=== PATIENT | male | born 1965 | race Caucasian/White ===

== ENCOUNTER 2018-01-07 07:17 | Day surgery (SDC) | payer OTHER, SELFPAY ==
--- NOTE | 2018-01-07 | PATH_ITS ---
[facility] Accession Number: [id number] . 01 Material submitted: . SIGMOID COLON POLYP . 02 Diagnosis: Sigmoid Colon, Polyp, Biopsy: Polypoid-shaped fragment of normal-appearing colon mucosa consistent with mucosal polypoid redundancy. Negative for evidence of neoplasm and/or hyperplasia on multiple serial histologic sections. MRV/01/12/2018 . 02 Electronically signed: . Otis Child MD, Pathologist NPI- [id number] . 01 Gross description: . SIGMOID COLON POLYP: Received in formalin is 1 fragment(s) of rush, soft tissue measuring 0.3 x 0.3 x 0.3 cm submitted entirely in 1 cassette(s) /TRC /TRC . 02 Pathologist provided ICD-10: K63.5 . 02 CPT . 778542 Performed at: 01 [facility] [address] [id number] MD Gerry Barraza MD Phone: [phone] Performed at: 02 [facility] [address] [place], [place] [id number] MD Yonny Larson MD Phone: [phone]
[2018-01-07 07:42] VITALS: BP 112/76; PULSE 62; RESP 18; TEMP 36.4; O2SAT 100; BMI 35.9
--- NOTE | 2018-01-07 08:05 | PM.HP.1 ---
History of Present Illness Chief complaint: egd colonoscopy [id number] Narrative: Perico Freeman is a 52 year old male who is here for colon cancer screening. He has a history of atrial fibrillation currently on Eliquis which has been held for 3 days. There are no new changes in his physical exam or history since he was last seen at our office October 30, 2017 There is no family history of colon cancer Patient History Family & Social History Family History: Reviewed 01/07/18 by Harley Weiner MD Social History: household members spouse Prior Living Arrangements House Meds Home Medications Medication Instructions Recorded Confirmed Type apixaban [Eliquis] 5 mg PO BID #0 05/03/17 01/07/18 History atorvastatin [Lipitor] 40 mg PO HS #90 06/13/17 01/07/18 History dofetilide [Tikosyn] 500 mcg PO Q12H 01/07/18 01/07/18 History duloxetine 20 mg PO BID 01/07/18 01/07/18 History hydrocodone-acetaminophen [[place]] 1 tab PO TID PRN 01/07/18 01/07/18 History metoprolol tartrate 25 mg PO BID 01/07/18 01/07/18 History Allergies Allergy/AdvReac Type Severity Reaction Status Date / Time No Known Drug Allergies Allergy Verified 01/07/18 07:30 Exam Vital Signs (past 8 hours): Vital Signs - 8 hr 01/07/18 07:42 Temperature 97.5 F L Pulse Rate 62 Respiratory Rate 18 Blood Pressure 112/76 Pulse Oximetry 100 Pulse Oximetry 100 Oxygen Delivery Method Room Air Narrative Exam Narrative: General: Patient is well developed, not in apparent distress Cardiovascular: Irregularly irregular rhythm, normal rate, no murmurs, rubs, or gallops; no evidence of edema; no palpable abdominal aortic aneurysm Gastrointestinal: Normoactive bowel sounds, soft, nontender, nondistended, no rebound tenderness, no hepatosplenomegaly, no evidence of hernia Assessment & Plan Plan: Plan: Screening colonoscopy today in an average risk patient. Anticoagulants have been held for the procedure
--- NOTE | 2018-01-07 08:08 | P.HP_ITS ---
History of Present Illness Chief complaint: egd colonoscopy [id number] Narrative: Perico Freeman is a 52 year old male who is here for colon cancer screening. He has a history of atrial fibrillation currently on Eliquis which has been held for 3 days. There are no new changes in his physical exam or history since he was last seen at our office October 30, 2017 There is no family history of colon cancer Patient History Family & Social History Family History: Reviewed 01/07/18 by Harley Weiner MD Social History: household members spouse Prior Living Arrangements House Meds Home Medications Medication Instructions Recorded Confirmed Type apixaban [Eliquis] 5 mg PO BID #0 05/03/17 01/07/18 History atorvastatin [Lipitor] 40 mg PO HS #90 06/13/17 01/07/18 History dofetilide [Tikosyn] 500 mcg PO Q12H 01/07/18 01/07/18 History duloxetine 20 mg PO BID 01/07/18 01/07/18 History hydrocodone-acetaminophen [[place]] 1 tab PO TID PRN 01/07/18 01/07/18 History metoprolol tartrate 25 mg PO BID 01/07/18 01/07/18 History Allergies Allergy/AdvReac Type Severity Reaction Status Date / Time No Known Drug Allergies Allergy Verified 01/07/18 07:30 Exam Vital Signs (past 8 hours): Vital Signs - 8 hr 3 01/07/18 07:42 Temperature 97.5 F L Pulse Rate 62 Respiratory Rate 18 Blood Pressure 112/76 Pulse Oximetry 100 Pulse Oximetry 100 Oxygen Delivery Method Room Air Narrative Exam Narrative: General: Patient is well developed, not in apparent distress Cardiovascular: Irregularly irregular rhythm, normal rate, no murmurs, rubs, or gallops; no evidence of edema; no palpable abdominal aortic aneurysm Gastrointestinal: Normoactive bowel sounds, soft, nontender, nondistended, no rebound tenderness, no hepatosplenomegaly, no evidence of hernia Assessment & Plan Plan: Plan: Screening colonoscopy today in an average risk patient. Anticoagulants have been held for the procedure
[2018-01-07] MEDS: SODIUM CHLORIDE 0.9% 1,000 ML 70 ML IV (08:26)
--- NOTE | 2018-01-07 08:30 | PM.OP.ENDO ---
Operative Date/Time/Diagnoses - Date of procedure: 01/07/18 Time of procedure: 08:30 Pre-op diagnosis: Colon cancer screening Post-op diagnosis: other (Sigmoid polyp status post polypectomy, grade 2 internal hemorrhoids) Procedure Notes Procedure in detail: Surgeon: Harley Weiner MD Procedure: Colonoscopy with polypectomy Medications: Conscious sedation using 5 mg IV of Midazolam and 100 mcg IV of Fentanyl Preanesthesia Assessment An H and P was performed/updated and the Px???s ASA class is 2. The procedure was discussed in detail with the patient. The potential risks and complications including infection, bleeding, missed lesions, perforation, need for surgery in case of perforation, prolonged hospital stay, and were explained. A brief question and answer period was allotted and once all questions were answered, informed consent was obtained. The patient was brought back to the procedure room and placed on standard monitoring. The patient???s vital signs were monitored continuously throughout the entire procedure. Prior to starting, a timeout was performed to confirm the patient???s identity, allergies, medications, and procedure. Procedure in detail The patient was placed in left lateral decubitus position and once adequate sedation was obtained a YA was performed. The tip of the colonoscope was then placed in the anal canal and advanced without difficulty all the way to the cecum which was identified by the appendiceal orifice and ileocecal valve. The terminal ileum was intubated to a distance of 5 cm from the ileocecal valve and there were no mucosal abnormalities. The colonoscope was brought back to the cecum and careful examination was performed of all norman of the colon with irrigation of any residual stool. In the sigmoid colon there was note of a 2 mm sessile polyp which was removed in its entirety by means of a cold Jumbo forceps with minimal bleeding. Retroflexion was then performed in the rectum which revealed grade 2 internal hemorrhoids. The procedure was terminated. The patient tolerated the procedure well and will be brought back to the recovery area to be discharged once criteria are met. The prep was judged to be good/excellent and adequate to identify polyps less than 5 mm. The withdrawal time was 8.5 min. The total procedure time from initial sedation was 17 min. Complications There were no complications and estimated blood loss was minimal. Recommendations: Resume previous diet Continue outPx medications Restart Eliquis today Follow up pathology results Repeat colonoscopy in 5 years or 10 years depending on pathology results An emergency contact number was given to the patient for any complications related to the procedure
[2018-01-07] MEDS: fentaNYL 250 MCG/5 ML INJ IV (08:41)
[2018-01-07] MEDS: MIDAZOLAM 5 MG/5 ML VIAL IV (08:41)
[2018-01-07 08:54] VITALS: BP 103/70; PULSE 62; RESP 14; TEMP 36.5; O2SAT 97
--- NOTE | 2018-01-07 08:54 | P.DS_ITS ---
History of Present Illness Chief complaint: egd colonoscopy [id number] Narrative: Perico Freeman is a 52 year old male who is here for colon cancer screening. He has a history of atrial fibrillation currently on Eliquis which has been held for 3 days. There are no new changes in his physical exam or history since he was last seen at our office October 30, 2017 There is no family history of colon cancer Discharge Providers Discharge provider: Harlye Weiner MD Exam Vital Signs (past 8 hours): Vital Signs - 8 hr 3 01/07/18 07:42 Temperature 97.5 F L Pulse Rate 62 Respiratory Rate 18 Blood Pressure 112/76 Pulse Oximetry 100 Pulse Oximetry 100 Oxygen Delivery Method Room Air Narrative Exam Narrative: General: Patient is well developed, not in apparent distress Cardiovascular: Irregularly irregular rhythm, normal rate, no murmurs, rubs, or gallops; no evidence of edema; no palpable abdominal aortic aneurysm Gastrointestinal: Normoactive bowel sounds, soft, nontender, nondistended, no rebound tenderness, no hepatosplenomegaly, no evidence of hernia Discharge Plan Discharge Plan Patient Disposition: Home, Self-Care Discharge comment: Discharge to home with escort Discharge Med Rec/Prescriptions Prescriptions: Continue apixaban [Eliquis] 5 MG tablet 5 mg PO BID Qty: 0 RF: 0 atorvastatin [Lipitor] 40 MG tablet 40 mg PO HS Qty: 90 RF: 0 dofetilide [Tikosyn] 500 mcg Capsule 500 mcg PO Q12H RF: 0 metoprolol tartrate 25 mg Tablet 25 mg PO BID RF: 0 duloxetine 20 mg Capsule,Delayed Release(Dr/Ec) 20 mg PO BID RF: 0 hydrocodone-acetaminophen [[place]] 7.5 MG/325 MG tablet 1 tab PO TID PRN (Reason: Pain (Scale Score 1-3)) RF: 0 Discharge Orders: Discharge (Order); Ordered 01/07/18 Ordered By: Harley Weiner Provider Discharge Instructions Diet: Diet as Tolerated Visit Report/Discharge Packet Stand Alone Forms: Surgery Discharge Discharge Data Attending Provider: Harley Weiner
[2018-01-07 08:59] VITALS: BP 105/73; PULSE 61; RESP 14; O2SAT 98
[2018-01-07 09:05] VITALS: BP 108/75; PULSE 61; RESP 14; TEMP 36.4; O2SAT 99
[2018-01-07 09:15] VITALS: BP 105/72; PULSE 61; RESP 16; TEMP 36.2; O2SAT 100
== END 2018-01-07 09:35 | disposition home or self-care (01) ==
PROVIDERS: Visit Provider Internal Medicine Gastroenterology
PROC: 0DJD8ZZ Inspection of Lower Intestinal Tract, Via Natural or Artificial Opening Endoscopic (ICD-10-PCS; CPT 45378; principal; 2018-01-07 08:30)
DX: Z12.11 Encounter for screening for malignant neoplasm of colon (principal); K64.1 Second degree hemorrhoids; D12.5 Benign neoplasm of sigmoid colon; I48.91 Unspecified atrial fibrillation
CPT/HCPCS: 45380; 88305; J2250; J3010

== ENCOUNTER → 2018-04-01 19:39 | Outpatient (CLI) | payer OTHER, SELFPAY ==
--- NOTE | 2018-04-01 19:45 | DI.MRI.S_ITS ---
PROCEDURE: MR ELBOW RT WO CON INDICATIONS: PAIN IN RIGHT ARM TECHNIQUE: Noncontrast coronal proton density fast spin echo and T2 fast spin echo with fat saturation, axial and sagittal T1 spin echo and T2 fast spin echo with fat saturation through the elbow. COMPARISON: None. FINDINGS: Image quality: Excellent. Lateral structures: The lateral ulnar collateral ligament and radial collateral ligament both appear intact. The overlying common extensor tendon also appears normal. Medial structures: The ulnar collateral ligament appears intact. The overlying common flexor tendon appears normal. The ulnar nerve appears normal in size and signal within the cubital tunnel. Anterior structures: Fluid is seen surrounding distal biceps tendon with thickening the distal biceps tendon and internal heterogeneous increased T2 signal suggestive of tendinosis and low to moderate grade intrasubstance partial-thickness tear involving distal 5 cm segment of biceps tendon. No full-thickness biceps tendon rupture. The brachialis tendon appears intact as it inserts onto the proximal ulna. The median and radial neurovascular bundles appear normal; no focal muscle atrophy to suggest nerve impingement. Posterior structures: The conjoint triceps tendon from the long and lateral heads appears intact. The medial head of the triceps tendon also appears normal, with direct muscle insertion onto the olecranon. No olecranon bursal fluid. Bone and cartilage: No bone marrow contusions or fractures. No osteochondral injuries. IMPRESSION: Findings consistent with tendinosis and low to moderate grade intrasubstance partial-thickness tear involving distal 5 cm segment of biceps tendon from its insertion on proximal radius. No full-thickness bicipital tendon tear. Other tendons and ligaments are intact. No marrow signal abnormality. No fracture or dislocation. Dictated by: Daniel Monterroso M.D. on 04/02/2018 at 10:07 Approved by: Daniel Monterroso M.D. on 04/02/2018 at 10:28
== END ==
PROVIDERS: Visit Provider Family Medicine
DX: M79.601 Pain in right arm (principal); S46.211A Strain of muscle, fascia and tendon of other parts of biceps, right arm, initial encounter
CPT/HCPCS: 73221

== ENCOUNTER → 2019-04-07 19:55 | Outpatient (CLI) | payer OTHER, SELFPAY ==
--- NOTE | 2019-04-07 20:02 | DI.RAD.S_ITS ---
PROCEDURE: XR FOOT LT MIN 3V INDICATIONS: Pain to mid-distal 3-5th metatarsals, limping gait TECHNIQUE: 3 views of the foot were acquired. COMPARISON: None. FINDINGS: Bones: No fractures or dislocations. No suspicious bony lesions. Soft tissues: No tibiotalar joint effusion. Achilles tendon appears normal. IMPRESSION: No acute fracture or dislocation. Dictated by: Daniel Monterroso M.D. on 04/07/2019 at 20:20 Approved by: Daniel Monterroso M.D. on 04/07/2019 at 20:27
== END ==
PROVIDERS: Visit Provider Physician Assistant
DX: R26.89 Other abnormalities of gait and mobility (principal)
CPT/HCPCS: 73630

== ENCOUNTER → 2021-05-31 19:11 | Outpatient (CLI) | payer OTHER, SELFPAY ==
--- NOTE | 2021-05-31 | DI.MRI.S_ITS ---
PROCEDURE: MR ANKLE LT WO CON INDICATIONS: chronic lateral left ankle pain TECHNIQUE: Noncontrast sagittal T1 spin echo and T2 fast spin echo with fat saturation, axial proton density fast spin echo and T2 fast spin echo with fat saturation, coronal T1 spin echo and T2 fast spin echo with fat saturation through the ankle/hindfoot. COMPARISON: [facility], MR, ANKLE WITHOUT CONTRAST, 01/12/2015, 16:03. FINDINGS: Image quality: Excellent. Bones and joints: No hindfoot coalitions. No osteochondral injuries of the talar dome. Degenerative changes are seen at the navicular-1st cuneiform articulation and the 2nd tarsometatarsal joint with subchondral cystic changes and edema, similar when compared to the prior exam from 2014. Mild degenerative spurring is seen at the dorsal talonavicular joint. Mild edema is seen at the plantar aspect of the 4th metatarsal base with mild adjacent soft tissue edema. Mild chronic irregularity of the distal fibular tip is consistent with remote prior trauma. A small lobular ganglion cyst is seen dorsal to the 3rd and 4th metatarsal bases measuring 12 x 8 x 7 mm. Medial structures: The deep and superficial layers of the deltoid ligament appear intact. The spring ligament components are intact. There is mild distal posterior tibialis tendinosis. The flexor digitorum longus and flexor hallucis longus tendons are intact. The posterior tibial neurovascular bundle appears normal within the tarsal tunnel, without extrinsic mass effect. Lateral structures: Chronic low-grade sprain of the anterior tibiofibular ligament is redemonstrated. The posterior tibiofibular ligament is intact. There is chronic thickening of the anterior talofibular ligament, consistent with a remote prior moderate grade sprain. The calcaneofibular ligament and the posterior talofibular ligament are intact. Chronic longitudinal split tearing of the peroneus brevis tendon is redemonstrated with reconstitution of the tendon at the level of the calcaneocuboid joint. There is mild peroneus longus tendinosis and tenosynovitis. The sinus tarsi demonstrates normal fatty signal, without edema, fibrosis, or cyst formation. Anterior structures: The tibialis anterior, extensor hallucis longus, and extensor digitorum longus tendons appear intact. The dorsal talonavicular ligament appears intact. Posterior and plantar structures: Achilles tendon is intact. There is mild thickening of the proximal plantar fascia without surrounding edema. No abductor digiti quinti muscle atrophy to suggest [place] neuropathy. Small nonedematous plantar and posterior calcaneal enthesophytes are seen. IMPRESSION: 1. Mild nonspecific osseous edema at the plantar aspect of the 4th metatarsal base with mild surrounding edema is new when compared to the prior MRI, which may be related to degenerative changes although mild trabecular bone injury related to an osseous contusion could appear similarly. 2. Moderate degenerative changes at the naviculocuneiform and 2nd tarsometatarsal joints. 3. Chronic moderate grade sprain of the anterior talofibular ligament and a chronic low-grade sprain of the anterior tibiofibular ligament do not appear significantly changed when compared to the prior MRI from 01/12/2015. 4. 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 5. Mild peroneus longus tendinosis and tenosynovitis. 6. Mild chronic proximal plantar fasciitis. Dictated by: Zhen Yeh M.D. on 06/01/2021 at 9:10 Approved by: Zhen Yeh M.D. on 06/01/2021 at 9:43
== END ==
PROVIDERS: Referring Provider Podiatrist; Visit Provider Podiatrist
DX: M25.572 Pain in left ankle and joints of left foot (principal); R60.0 Localized edema; S93.432A Sprain of tibiofibular ligament of left ankle, initial encounter; S93.492A Sprain of other ligament of left ankle, initial encounter; S96.812A Strain of other specified muscles and tendons at ankle and foot level, left foot, initial encounter; M65.872 Other synovitis and tenosynovitis, left ankle and foot; M72.2 Plantar fascial fibromatosis
CPT/HCPCS: 73721

== ENCOUNTER → 2022-03-27 12:02 | Outpatient (CLI) | payer OTHER, SELFPAY ==
[2022-03-27 13:28] LABS: Blood Urea Nitrogen 18 mg/dL (9-20); Calcium 9.2 mg/dL (8.4-10.2); Carbon Dioxide 29 mmol/L (22-32); Chloride 107 mmol/L (98-107); Estimated Glomerular Filt Rate > 60 mL/min (>60); Glucose 99 mg/dL (70-100); HEMOLYSIS < 15 (0-50); Sodium 141 mmol/L (137-145)
== END ==
PROVIDERS: Referring Provider Internal Medicine Cardiovascular Disease; Visit Provider Internal Medicine Cardiovascular Disease
DX: Z51.81 Encounter for therapeutic drug level monitoring (principal)
CPT/HCPCS: 36415; 80048

== ENCOUNTER → 2022-07-12 18:31 | Outpatient (CLI) | payer OTHER, SELFPAY ==
--- NOTE | 2022-07-12 18:33 | DI.MRI.S_ITS ---
PROCEDURE: MR ANKLE RT WO/W CON INDICATIONS: pain in right ankle joints TECHNIQUE: Noncontrast sagittal T1 spin echo and T2 fast spin echo with fat saturation, axial proton density fast spin echo and T2 fast spin echo with fat saturation, axial T1 spin echo with fat saturation, coronal T1 spin echo and T2 fast spin echo with fat saturation through the ankle/hindfoot. Post-contrast axial, coronal, and sagittal T1 spin echo with fat saturation through the ankle/hindfoot. COMPARISON: None. FINDINGS: Image quality: Excellent. Bones and joints: No suspicious osseous enhancement. Mild midfoot and hindfoot joint osteoarthritic changes are noted with joint space narrowing and subchondral sclerosis. No bone marrow contusions or fractures. No hindfoot coalitions. No osteochondral injuries of the talar dome. No pathologic joint effusions. Small plantar and dorsal calcaneal enthesophytes are seen. Medial structures: The posterior tibialis, flexor digitorum longus, and flexor hallucis longus tendons are intact. The posterior tibial neurovascular bundle appears normal within the tarsal tunnel, without extrinsic mass effect. The deltoid ligament and spring ligament are thickened. No ligament rupture. Lateral structures: The anterior talofibular, calcaneofibular, and posterior talofibular ligaments appear thickened with intrasubstance T2 hyperintense signal.. More superiorly, the anterior and posterior tibiofibular ligaments appear intact, as is the intermalleolar ligament. The tibiofibular syndesmosis is normal in width at 2 mm or less. The peroneus longus tendon is thickened at the level of mid to distal calcaneus and calcaneocuboid joint with intrasubstance T2 hyperintense signal. The peroneus brevis tendon is intact. Adjacent bony peroneal tubercle and retrotrochlear prominence are normal in size. The sinus tarsi demonstrates normal fatty signal, without edema, fibrosis, or cyst formation. Visualized sinus tarsi components (cervical ligament, interosseous talocalcaneal ligament, roots of the inferior extensor retinaculum) appear normal. The calcaneonavicular and calcaneocuboid components of the bifurcate ligament appear intact. The dorsal calcaneocuboid ligament appears intact. Anterior structures: The tibialis anterior, extensor hallucis longus, and extensor digitorum longus tendons appear intact. The dorsal talonavicular ligament appears intact. Posterior and plantar structures: There is thickening involving distal 6.8 cm segment of Achilles tendon extending to its posterior calcaneal insertion with surrounding soft tissue edema and mild intrasubstance T2 hyperintense signal. Medial and lateral bands of the plantar fascia are thickened with mild adjacent soft tissue edema at its plantar calcaneal insertion. No abductor digiti quinti muscle atrophy to suggest [place] neuropathy. IMPRESSION: 1. No enhancing soft tissue mass or abnormal fluid collection. 2. No abnormal intraosseous enhancement. Mild midfoot and hindfoot joint osteoarthritis. No fracture or dislocation. No osteochondral injuries of talar dome. Small calcaneal enthesophytes. 3. Distal Achilles tendinosis and low-grade intrasubstance partial-thickness tear. No Achilles tendon rupture. Thickened plantar fascia suggestive of low-grade plantar fasciitis. 4. Mild medial ankle ligament sprain. 5. Low to moderate grade sprain/partial-thickness tear involving anterior and posterior talofibular ligaments and calcaneofibular ligament. 6. Finding is suggestive of tendinosis and very low-grade intrasubstance partial-thickness tear involving peroneus longus tendon as above. Dictated by: Daniel Monterroso M.D. on 07/15/2022 at 9:48 Approved by: Daniel Monterroso M.D. on 07/15/2022 at 9:53
== END ==
PROVIDERS: Referring Provider Family Medicine; Visit Provider Family Medicine
DX: S86.011A Strain of right Achilles tendon, initial encounter (principal); S93.491A Sprain of other ligament of right ankle, initial encounter; S93.411A Sprain of calcaneofibular ligament of right ankle, initial encounter; M19.071 Primary osteoarthritis, right ankle and foot; M77.31 Calcaneal spur, right foot; M25.571 Pain in right ankle and joints of right foot; M79.673 Pain in unspecified foot; M67.969 Unspecified disorder of synovium and tendon, unspecified lower leg
CPT/HCPCS: 73723; A9579

== ENCOUNTER → 2022-08-07 12:53 | Outpatient (CLI) | payer OTHER, SELFPAY ==
[2022-08-07 14:03] LABS: BUN Creatinine Ratio 29.8 (6-22); Blood Urea Nitrogen 25 mg/dL (9-20); Calcium 9.2 mg/dL (8.4-10.2); Carbon Dioxide 25 mmol/L (22-32); Chloride 105 mmol/L (98-107); Estimated Glomerular Filt Rate > 60 mL/min (>60); Glucose 91 mg/dL (70-100); HEMOLYSIS < 15 (0-50); Potassium 4.5 mmol/L (3.4-5.1); Sodium 140 mmol/L (137-145)
== END ==
PROVIDERS: Referring Provider Internal Medicine Cardiovascular Disease; Visit Provider Internal Medicine Cardiovascular Disease
DX: Z51.81 Encounter for therapeutic drug level monitoring (principal); Z79.899 Other long term (current) drug therapy
CPT/HCPCS: 36415; 80048

== ENCOUNTER 2022-09-17 10:03 | Observation (INO) | payer OTHER, SELFPAY ==
[2022-09-17] VITALS (8 sets, daily range): BP systolic 119–151; BP diastolic 66–84; PULSE 75–107; RESP 12–23; TEMP 36.7–37.2; O2SAT 93–100; BMI 35.9
--- NOTE | 2022-09-17 10:20 | ED.ABDPAIN ---
HPI - Abdominal Pain General Chief Complaint: Abdominal Pain Stated Complaint: rt side abd pain, fever Time Seen by Provider: 09/17/22 10:12 Source: patient Mode of arrival: Ambulatory History of Present Illness HPI narrative: 56-year-old male presenting with abdominal pain localized to the right lower quadrant. Patient felt chills last night, developed worsening right lower quadrant abdominal pain that has been constant and moderate severity today. Patient's last p.o. intake was last night, patient only took his morning pills. Past medical history notable for history of atrial fibrillation on metoprolol, Tikosyn, and Eliquis for anticoagulation. Related Data Home Medications Medication Instructions Recorded Confirmed apixaban 5 mg tablet (Eliquis) 5 mg PO BID ##0 05/03/17 09/17/22 atorvastatin 40 mg tablet (Lipitor) 40 mg PO HS ##90 06/13/17 09/17/22 dofetilide 500 mcg capsule 500 mcg PO BID 01/07/18 09/17/22 (Tikosyn) duloxetine 20 mg capsule,delayed 40 mg PO BID 01/07/18 09/17/22 release hydrocodone 7.5 mg-acetaminophen 1 tab PO TID PRN Pain (Scale Score 01/07/18 09/17/22 325 mg tablet (Moon) 1-3) metoprolol tartrate 25 mg tablet 25 mg PO BID 01/07/18 09/17/22 magnesium 200 mg tablet 400 mg PO DAILY 09/17/22 09/17/22 [id number] 200 1 pkg PO QAM 09/17/22 09/17/22 mcg/240 mg-360 mg oral combo pack Allergies Allergy/AdvReac Type Severity Reaction Status Date / Time No Known Drug Allergies Allergy Verified 09/17/22 10:10 Patient History Social History household members: spouse and family Smoking Status: Never smoker alcohol intake: never Smoking Status: Unknown if ever smoked alcohol intake frequency: holidays/special occasions only Substance Use Type: does not use Exam Narrative Exam Narrative: Vitals reviewed. Nursing note reviewed Constitutional: interactive HENT: Moist mucous membranes EYES: No scleral icterus NECK: no masses CV: Well perfused peripherally, no cyanosis present PULM: Unlabored respirations, symmetric chest rise ABD: Non-distended, tender over the RLQ MS: No gross deformities, no asymmetric edema noted SKIN: Warm and dry. PSYCH: Appropriate affect NEURO: Follows simple commands, moves extremities, interactive with exam Initial Vital Signs Initial Vital Signs: Vital Signs Temperature 98.1 F 09/17/22 10:07 Pulse Rate 75 09/17/22 10:07 Respiratory Rate 15 09/17/22 10:07 Blood Pressure 133/82 09/17/22 10:07 Pulse Oximetry 98 09/17/22 10:07 Oxygen Delivery Method 09/17/22 10:07 Course Orders Ordered: Acetaminophen (Acetaminophen 325 Mg Tablet) 650 mg PO Q6H PRN PRN Reason: Fever/Mild Pain (1-3) Hydrocodone Bitart/Acetaminophen (Hydrocodone/Acet 5/325 Tablet) 1 tab PO Q4H PRN PRN Reason: Pain, Moderate (4-6) Hydrocodone Bitart/Acetaminophen (Hydrocodone/Acet 5/325 Tablet) 2 tab PO Q4H PRN PRN Reason: Pain, Severe (7-10) Last Admin: 09/17/22 17:03 Dose: 2 tab Documented By: TIFFANY Hydromorphone HCl (Hydromorphone 0.5 Mg Inj) 0.5 mg IV Q4H PRN PRN Reason: Pain, Moderate (4-6) Hydromorphone HCl (Hydromorphone 1 Mg Inj) 1 mg IV Q4H PRN PRN Reason: Pain, Severe (7-10) Last Admin: 09/17/22 19:40 Dose: 1 mg Documented By: ANGEL Lactated Ringer's (Lactated Ringers) 1,000 mls @ 100 mls/hr IV CONT [facility] Last Admin: 09/17/22 14:17 Dose: 100 mls/hr Documented By: TIFFANY Piperacillin Sod/Tazobactam (Sod 4.5 gm/ Sodium Chloride) 100 mls @ 25 mls/hr IV NOW [facility] Last Infusion: 09/17/22 19:28 Dose: 25 mls/hr Documented By: Infusion: 09/17/22 19:28 Dose: 0 mls/hr Documented By: Admin: 09/17/22 17:10 Dose: 25 mls/hr Documented By: TIFFANY Piperacillin Sod/Tazobactam (Sod 3.375 gm/ Sodium Chloride) 100 mls @ 25 mls/hr IV Q8H [facility] Last Admin: 09/17/22 17:26 Dose: Not Given Documented By: TIFFANY Ibuprofen (Ibuprofen 600 Mg Tablet) 600 mg PO Q6H PRN PRN Reason: Fever/Mild Pain (1-3) Naloxone HCl (Naloxone 0.4 Mg/Ml Vial) 0.2 mg IV Q2MIN PRN PRN Reason: Opiate Reversal Ondansetron HCl (Ondansetron 4 Mg/2 Ml Inj) 4 mg IV Q8HR PRN PRN Reason: Nausea And Vomiting Discontinued Medications Hydromorphone HCl (Hydromorphone 0.5 Mg Inj) 1 mg IV NOW ONE Stop: 09/17/22 13:11 Last Admin: 09/17/22 13:14 Dose: 1 mg Documented By: TIFFANY Metronidazole (Flagyl) 500 mg in 100 mls @ 100 mls/hr IV NOW ONE Stop: 09/17/22 11:19 Last Infusion: 09/17/22 19:27 Dose: 0 mls/hr Documented By: Admin: 09/17/22 11:15 Dose: 100 mls/hr Documented By: MADI Ceftriaxone Sodium 2,000 mg/ (Sodium Chloride) 100 mls @ 200 mls/hr IV NOW ONE Stop: 09/17/22 10:23 Last Infusion: 09/17/22 11:30 Dose: 0 mls/hr Documented By: Admin: 09/17/22 10:31 Dose: 200 mls/hr Documented By: MADI Sodium Chloride (Normal Saline 0.9%) 500 mls @ 2,000 mls/hr IV BOLUS ONE Stop: 09/17/22 11:24 Last Admin: 09/17/22 11:21 Dose: Not Given Documented By: MADI Sodium Chloride (Normal Saline 0.9%) 1,000 mls @ 2,000 mls/hr IV BOLUS ONE Stop: 09/17/22 11:49 Last Infusion: 09/17/22 19:27 Dose: 0 mls/hr Documented By: Admin: 09/17/22 11:23 Dose: 2,000 mls/hr Documented By: MADI Morphine Sulfate (Morphine 4 Mg/Ml Inj) 4 mg IV NOW ONE Stop: 09/17/22 10:21 Last Admin: 09/17/22 10:26 Dose: 4 mg Documented By: MADI Vital Signs Vital signs: Vital Signs - 8 hr 09/17/22 10:07 09/17/22 10:09 09/17/22 10:09 Temperature 98.1 F Pulse Rate 75 78 Respiratory Rate 15 Blood Pressure 133/82 133/82 Pulse Oximetry 98 99 Oxygen Delivery Method Room Air 09/17/22 10:30 09/17/22 10:30 09/17/22 10:52 Temperature Pulse Rate 76 Respiratory Rate 12 Blood Pressure 135/75 138/81 Pulse Oximetry 100 Oxygen Delivery Method 09/17/22 10:52 09/17/22 11:00 09/17/22 11:00 Temperature Pulse Rate 85 76 Respiratory Rate 20 Blood Pressure 137/84 Pulse Oximetry 97 99 Oxygen Delivery Method 09/17/22 11:30 09/17/22 11:30 Temperature Pulse Rate 77 Respiratory Rate 22 Blood Pressure 136/80 Pulse Oximetry 99 Oxygen Delivery Method MDM - Abdominal Pain Lab Data 09/17/22 10:11 09/17/22 10:11 Labs: Lab Results 09/17/22 09/17/22 09/17/22 Range/Units 10:11 10:11 11:19 WBC 12.6 H (4.5-11.0) X10^3/uL RBC 4.63 (4.5-5.9) X10^6/uL Hgb 13.9 (13.5-17.5) g/dL Hct 41.8 (41-53) % MCV 90.4 (80-100) fL MCH 30.0 (26-34) PG MCHC 33.1 (30-36) % RDW 13.2 (11.6-14.8) % Plt Count 243 (150-400) X10^3/uL Neut % (Auto) 78.7 H (50-75) % Lymph % (Auto) 11.4 L (25-40) % [place] % (Auto) 8.6 (3-14) % Eos % (Auto) 0.8 L (2-4) % Baso % (Auto) 0.5 (0-2) % Neut # (Auto) 9900 H (5054-6610) /uL Lymph # (Auto) 1400 (7495-2941) /uL [place] # (Auto) 1100 H (0-900) /uL Eos # (Auto) 100 (0-450) /uL Baso # (Auto) 100 (0-100) /uL Sodium 141 (137-145) mmol/L Potassium 4.9 (3.4-5.1) mmol/L Chloride 105 (98-107) mmol/L Carbon Dioxide 29 (22-32) mmol/L BUN 16 (9-20) mg/dL Creatinine 0.82 (0.66-1.25) mg/dL Estimated GFR > 60 (>60) mL/min BUN/Creatinine Ratio 19.5 (6-22) Glucose 104 H (70-100) mg/dL Calcium 9.1 (8.4-10.2) mg/dL Total Bilirubin 0.9 (0.2-1.3) mg/dL AST 33 (17-59) IU/L ALT 29 (<50) IU/L Alkaline Phosphatase 83 (38-126) U/L Total Protein 7.5 (6.3-8.2) g/dL Albumin 4.0 (3.5-5.0) g/dL Globulin 3.5 (1.7-4.1) g/dL Albumin/Globulin Ratio 1.1 (1.0-2.8) Lipase 682 H (23-300) U/L SARS-CoV-2 (PCR) Negative (Negative) MDM Narrative Medical decision making narrative: 56-year-old male presenting right lower quadrant abdominal pain and subjective fevers. On presentation, vital signs notable for hypertension. Physical exam for alert interactive 56-year-old male who is in no acute distress, reassuring cardiopulmonary exam, abdomen notable for focal right lower quadrant abdominal pain. Initial concern for acute intra-abdominal pathology including appendicitis, colitis, atypical diverticulitis, hernia, obstruction, biliary pathology. Screening labs obtained for mild leukocytosis 12,000, reassuring creatinine, elevated lipase of uncertain clinical significance given patient without focal epigastric tenderness. Patient was then administered empiric antibiotics and IV fluids with ceftriaxone and metronidazole out of concern for appendicitis. Imaging obtained with CT to further evaluate notable for acute uncomplicated appendicitis. Discussed case with general surgery team who agree with plan for admission to facilitate surgical management. Patient subsequently admitted ongoing care. Discharge Plan Departure Patient Disposition: Admitted as Observation Clinical Impression: Acute appendicitis Admit Date/Time: 09/17/22 11:33 Admit Provider: Jay Garcia
[2022-09-17 10:26] LABS: Add Manual Diff / Slide Review NO; Basophils Absolute Auto 100 /uL (0-100); Basophils Percent Auto 0.5 % (0-2); Eosinophils Absolute Auto 100 /uL (0-450); Eosinophils Percent Auto 0.8 % (2-4); Hematocrit 41.8 % (41-53); Hemoglobin 13.9 g/dL (13.5-17.5); Lymphocytes Absolute Auto 1400 /uL (1100-4500); Lymphocytes Percent Auto 11.4 % (25-40); Mean Corpuscular HGB Conc 33.1 % (30-36); Mean Corpuscular Volume 90.4 fL (80-100); Monocytes Absolute Auto 1100 /uL (0-900); Monocytes Percent Auto 8.6 % (3-14); Neutrophils Absolute Auto 9900 /uL (1500-7000); Neutrophils Percent Auto 78.7 % (50-75); Platelet Count 243 X10^3/uL (150-400); Red Blood Cell Count 4.63 X10^6/uL (4.5-5.9); Red Cell Distribution Width 13.2 % (11.6-14.8); White Blood Cell Count 12.6 X10^3/uL (4.5-11.0)
[2022-09-17] MEDS: MORPHINE 4 MG/ML INJ IV (10:26)
[2022-09-17] MEDS: cefTRIAXone 2,000 MG in SODIUM CHLORIDE 0.9% 100 ML 200 MG IV (10:31)
--- NOTE | 2022-09-17 10:44 | DI.CT.S_ITS ---
PROCEDURE: CT ABDOMEN PELVIS W CON INDICATIONS: Evaluate appendicitis TECHNIQUE: After the administration of intravenous contrast, axial sections acquired from the lung bases to the pubic symphysis. Coronal and sagittal reformats were performed. For radiation dose reduction, the following was used: automated exposure control, adjustment of mA and/or kV according to patient size. COMPARISON: None. FINDINGS: Image quality: Excellent. Lung bases: Lung bases are clear. Heart size is normal. Solid organs: Liver: The liver has multiple hypodensities in both lobes of the liver the largest measuring 1.5 cm, most likely hemangiomas. The portal vein and hepatic veins are patent. Biliary: The gallbladder has no gallstones, pericholecystic fluid, gallbladder wall thickening, or surrounding inflammatory change. Pancreas: The pancreas has no mass or ductal dilatation. There is no surrounding inflammation. Spleen: Normal size. There are no masses. Adrenals: No hypertrophy or nodules. Kidneys: No obstructive calculus or hydronephrosis. No solid mass. 1 cm cyst of the superior pole of the left kidney. Peritoneum and bowel: The distal esophagus and stomach are normal. The small bowel has a normal caliber and appearance. The terminal ileum is normal. The large bowel has a normal caliber and appearance. The the appendix is dilated measuring 1.3 cm with a 7 mm appendicoliths. There is surrounding inflammation with no evidence of perforation or abscess. No free fluid or air. Nodes and vessels: No retroperitoneal or mesenteric adenopathy by size criteria. Aorta and inferior vena cava are normal in size. Miscellaneous: No abdominal wall mass or hernia. PELVIS: Genitourinary: The bladder has no wall thickening or mass. No bladder calcifications. Bones: Degenerative changes with no focal abnormality. No vertebral body compression fractures. IMPRESSION: Acute appendicitis with an appendicolith. No evidence of perforation or abscess. Findings were discussed with in the ED at 11:05 on 09/17/2022. Dictated by: Aydin Aviles M.D. on 09/17/2022 at 10:58 Approved by: Aydin Aviles M.D. on 09/17/2022 at 11:08
[2022-09-17 11:13] LABS: Alanine Aminotransferase 29 IU/L (<50); Albumin Globulin Ratio 1.1 (1.0-2.8); Alkaline Phosphatase 83 U/L (38-126); Aspartate Aminotransferase 33 IU/L (17-59); BUN Creatinine Ratio 19.5 (6-22); Bilirubin Total 0.9 mg/dL (0.2-1.3); Blood Urea Nitrogen 16 mg/dL (9-20); Calcium 9.1 mg/dL (8.4-10.2); Carbon Dioxide 29 mmol/L (22-32); Chloride 105 mmol/L (98-107); Estimated Glomerular Filt Rate > 60 mL/min (>60); Globulin 3.5 g/dL (1.7-4.1); Glucose 104 mg/dL (70-100); HEMOLYSIS < 15 (0-50); Lipase 682 U/L (23-300); Potassium 4.9 mmol/L (3.4-5.1); Sodium 141 mmol/L (137-145); Total Protein 7.5 g/dL (6.3-8.2)
[2022-09-17] MEDS: metroNIDAZOLE 500 MG/100 ML PIGGYBACK 100 MG IV (11:15)
[2022-09-17] MEDS: SODIUM CHLORIDE 0.9% 1,000 ML 2000 ML IV (11:23)
[2022-09-17 11:39] LABS: COVID19 -Nasal RAPID Negative (Negative)
[2022-09-17] MEDS: HYDROMORPHONE 0.5 MG INJ 1 MG IV (13:14)
--- NOTE | 2022-09-17 13:34 | PM.HP.1 ---
History of Present Illness History of Present Illness Date Patient Seen: 09/17/22 Time Patient Seen: 13:34 Chief complaint: rt side abd pain, fever Narrative: Perico is a 56-year-old man who presents with several days of malaise and right lower quadrant pain. Came in his ER where a CT showed acute appendicitis. He takes Eliquis for atrial fibrillation and his last dose was this morning. Patient History Family & Social History Social History: household members spouse,family Prior Living Arrangements House Safety & Behavioral: Feels Safe in Current Yes Environment Been Physically Hurt or No Threatened By a Person Tobacco & Substance use: Smoking Status Never smoker alcohol intake never alcohol intake frequency holiday/special occasion Substance Use Type does not use Meds Home Medications and Allergies Home Medications Medication Instructions Recorded Confirmed Type apixaban 5 mg tablet (Eliquis) 5 mg PO BID ##0 05/03/17 09/17/22 History atorvastatin 40 mg tablet (Lipitor) 40 mg PO HS ##90 06/13/17 09/17/22 History dofetilide 500 mcg capsule 500 mcg PO BID 01/07/18 09/17/22 History (Tikosyn) duloxetine 20 mg capsule,delayed 40 mg PO BID 01/07/18 09/17/22 History release hydrocodone 7.5 mg-acetaminophen 1 tab PO TID PRN Pain (Scale Score 01/07/18 09/17/22 History 325 mg tablet (Velma) 1-3) metoprolol tartrate 25 mg tablet 25 mg PO BID 01/07/18 09/17/22 History magnesium 200 mg tablet 400 mg PO DAILY 09/17/22 09/17/22 History [id number] 200 1 pkg PO QAM 09/17/22 09/17/22 History mcg/240 mg-360 mg oral combo pack Allergies Allergy/AdvReac Type Severity Reaction Status Date / Time No Known Drug Allergies Allergy Verified 09/17/22 10:10 Exam Vital Signs (past 8 hours): - 09/17/22 10:07 09/17/22 10:09 09/17/22 10:09 Temperature 98.1 F Pulse Rate 75 78 Respiratory Rate 15 Blood Pressure 133/82 133/82 Pulse Oximetry 98 99 Oxygen Delivery Method Room Air Oxygen Flow Rate 09/17/22 10:30 09/17/22 10:30 09/17/22 10:52 Temperature Pulse Rate 76 Respiratory Rate 12 Blood Pressure 135/75 138/81 Pulse Oximetry 100 Oxygen Delivery Method Oxygen Flow Rate 09/17/22 10:52 09/17/22 11:00 09/17/22 11:00 Temperature Pulse Rate 85 76 Respiratory Rate 20 Blood Pressure 137/84 Pulse Oximetry 97 99 Oxygen Delivery Method Oxygen Flow Rate 09/17/22 11:30 09/17/22 11:30 09/17/22 13:18 Temperature 98.4 F Pulse Rate 77 82 Respiratory Rate 22 23 Blood Pressure 136/80 151/79 H Pulse Oximetry 99 99 Oxygen Delivery Method Oxygen Flow Rate 0 Oxygen Delivery Method Room Air Oxygen Flow Rate 0 Narrative Exam Narrative: Nontoxic Tender to light palpation at McBurney's point Objective Labs 09/17/22 10:11 09/17/22 10:11 Labs: Laboratory Results - last 24 hr 09/17/22 09/17/22 09/17/22 10:11 10:11 11:19 WBC 12.6 H RBC 4.63 Hgb 13.9 Hct 41.8 MCV 90.4 MCH 30.0 MCHC 33.1 RDW 13.2 Plt Count 243 Neut % (Auto) 78.7 H Lymph % (Auto) 11.4 L [place] % (Auto) 8.6 Eos % (Auto) 0.8 L Baso % (Auto) 0.5 Neut # (Auto) 9900 H Lymph # (Auto) 1400 [place] # (Auto) 1100 H Eos # (Auto) 100 Baso # (Auto) 100 Sodium 141 Potassium 4.9 Chloride 105 Carbon Dioxide 29 BUN 16 Creatinine 0.82 Estimated GFR > 60 BUN/Creatinine Ratio 19.5 Glucose 104 H Calcium 9.1 Total Bilirubin 0.9 AST 33 ALT 29 Alkaline Phosphatase 83 Total Protein 7.5 Albumin 4.0 Globulin 3.5 Albumin/Globulin Ratio 1.1 Lipase 682 H SARS-CoV-2 (PCR) Negative Assessment & Plan Assessment and plan (1) Acute appendicitis: Status: Acute Plan 56-year-old man with acute appendicitis. The antibiotics have been started in the emergency department. Due to his anticoagulation on Eliquis with his last dose this morning, plan will be IV antibiotics today and tonight and plan for laparoscopic appendectomy tomorrow. I explained the risks and benefits of proceeding with surgery today versus delayed surgery tomorrow given his anticoagulation. He would like to proceed with the plan for surgery tomorrow. NPO at midnight. Time Spent With Patient Critical Care time: I spent a total of [] minutes of critical care time on this patient's care today; this time is exclusive of procedural time.
[2022-09-17] MEDS: LACTATED RINGERS 1,000 ML 100 ML IV (14:17)
[2022-09-17] MEDS: HYDROCODONE/ACET 5/325 TABLET 2 TAB PO ×2 (17:03→22:30)
[2022-09-17] MEDS: PIPERACILLIN/TAZO 4.5 GM in SODIUM CHLORIDE 0.9% 100 ML IV (17:10)
--- NOTE | 2022-09-17 19:34 | PC.NURSE ---
admit to floor for appendicitis. page to dr marcano requesting pain Rx. MD arrived to floor to see patient. new orders for dilauded 1mg x1 now. plan: surgery tomorrow at noon. general diet til midnight, then NPO. LR at 100/hour, zosyn. PRN norco given prior to end of shift for reported abd pain 02/17. u/a sent.
[2022-09-17] MEDS: HYDROMORPHONE 1 MG INJ IV (19:40)
[2022-09-17] MEDS: METOPROLOL IR 25 MG TABLET PO (22:25)
[2022-09-17] MEDS: DULOXETINE 20 MG CAPSULE 40 MG PO (22:25)
[2022-09-17] MEDS: ATORVASTATIN 20 MG TABLET 40 MG PO (22:25)
[2022-09-18] VITALS (15 sets, daily range): BP systolic 101–139; BP diastolic 62–85; PULSE 20–105; RESP 11–94; TEMP 35.7–37.7; O2SAT 16–98; BMI 35.9
--- NOTE | 2022-09-18 | PATH_ITS ---
[facility] Accession Number: [id number] No. of containers..01 Tissue . 01 Material submitted: . appendix - APPENDIX . 01 Clinical history: . RT SIDE ABD PAIN, FEVER . 01 Diagnosis: Appendix, Appendectomy: Marked acute appendicitis with transmural suppurative inflammation and serositis (microscopic perforation). No evidence of neoplasm. MRV 09/24/2022 1321 Local . 01 Electronically signed: . Cam Rachel MD, PhD, Pathologist NPI- [id number] . 01 Gross description: . The specimen is received in formalin labeled with the patient's name, , and appendix, and consist of a vermiform appendix measuring 8.9 x 0.7 cm with brown to rush roughened serosa significant for a moderate amount of rush presumed exudate with no defects grossly identified. The surgical margin is received closed with jodi, which are removed, and the margin is inked blue. Sectioning reveals a patent lumen filled with brown semi-solid material ranging from 0.1 to 0.4 cm in diameter. The norman are moss-rush and range from 0.1 to 0.3 cm thick with no perforations grossly identified. Also included within the container are two yellow soft tissue fragments aggregating to 7.5 x 3.2 x 2.2 cm. A small amount of presumed exudate is identified. Sectioning reveals yellow to brown soft tissue with no lesions identified. Belt Builder Helper sections are submitted as follows: A1: Belt Builder Helper appendix to include one-half of bisected distal tip, surgical margin and cross sections. A2: Belt Builder Helper additional soft tissue. ([id number]) /MRV 09/19/2022 1633 Local . 01 Pathologist provided ICD-10: K35.20 . 01 CPT . 818050 Specimen Comment: A courtesy copy of this report has been sent to [phone] Performed at: 01 [facility] [address] [place] [address], [place], [place] [id number] MD Gerry Barraza MD Phone: [phone]
[2022-09-18] MEDS: LACTATED RINGERS 1,000 ML 100 ML IV ×4 (00:05→13:21)
[2022-09-18] MEDS: PIPERACILLIN/TAZO 3.375 GM in SODIUM CHLORIDE 0.9% 100 ML IV ×2 (02:27→11:41)
[2022-09-18] MEDS: HYDROMORPHONE 1 MG INJ IV ×2 (04:21→09:52)
[2022-09-18 07:02] LABS: Add Manual Diff / Slide Review NO; Basophils Absolute Auto 0 /uL (0-100); Basophils Percent Auto 0.2 % (0-2); Eosinophils Absolute Auto 0 /uL (0-450); Eosinophils Percent Auto 0.1 % (2-4); Hematocrit 36.6 % (41-53); Hemoglobin 12.2 g/dL (13.5-17.5); Lymphocytes Absolute Auto 1000 /uL (1100-4500); Mean Corpuscular HGB Conc 33.2 % (30-36); Mean Corpuscular Hemoglobin 30.1 PG (26-34); Mean Corpuscular Volume 90.6 fL (80-100); Monocytes Absolute Auto 500 /uL (0-900); Monocytes Percent Auto 5.3 % (3-14); Neutrophils Absolute Auto 8600 /uL (1500-7000); Neutrophils Percent Auto 84.4 % (50-75); Platelet Count 173 X10^3/uL (150-400); Red Blood Cell Count 4.04 X10^6/uL (4.5-5.9); Red Cell Distribution Width 13.4 % (11.6-14.8); White Blood Cell Count 10.2 X10^3/uL (4.5-11.0)
--- NOTE | 2022-09-18 09:09 | PC.NURSE ---
Addendum entered by Irasema Kirkland R.N. 09/18/22 18:57: Patient on a regular diet and he is tolerating food well. O nausea. Resting comfortably. Addendum entered by Irasema Kirkland R.N. 09/18/22 16:21: Patient back from surgery earlier, he has 3 small incisions with dressings that are cdi and ARLIN drain putting out red, bloody drainage. in room and he denies pain at this time. Original Note: Assess- Patient is alert and oriented x4, he is lying in bed and comfortable. He will go for his lap appe around 1230. Patient takes metoprolol and tikosyn for afib. Called Dr. Wilkinson office, they will give him a message to get this ordered and to ask if he wants it given.
[2022-09-18] MEDS: METOPROLOL IR 25 MG TABLET PO ×2 (11:15→21:09)
--- NOTE | 2022-09-18 12:06 | CM.DANOTE ---
Patient is a 56 yo male who was admitted on 09/17/22 for Acute Appendicitis. Pt has [employer] for insurance and his PCP is at the [facility]. EMR was reviewed. Per Surgeon, pt needing anticoagulation and will then have Lap Appe today. Pt has no hx of admissions and is active and independent at baseline and lives with his spouse and works. SW attempted to meet bedside with pt but off the floor in surgery. Per Rn, no anticipated needs. May d/c later today or tomorrow pending surgery and needs and if he needs to get back on his medications. Plan: SW to follow for possible d/c home tonight vs tomorrow and if pt remains overnight then to meet bedside to confirm safe d/c to home at discharge. MESFIN Harrison Discharge Planning/Care Management Advanced directive, confirm from FAMILY Start: 09/17/22 12:49 Freq: Q24H Status: Active Protocol: Document 09/17/22 12:49 AKP (Rec: 09/17/22 12:49 AKP [id number]) Advance Directive, confirm on record Time 12:49 Person contacted Lavinia Voit Copy received No CM Discharge Assessment Start: 09/18/22 11:31 Freq: Status: Active Protocol: Document 09/18/22 11:31 BF (Rec: 09/18/22 12:06 BF [id number]) Discharge Planning Assessment Assigned Product Development Actuary MESFIN Cummings DPOA/Assigned Designee Name informally spouse Aashish Contact Information [phone] Advance Directives? Yes: cant recall where about it is. Advance Directives on File No History Provided By Patient,Significant Other, Medical Record Has Patient been admitted in last 30 No days? Prior Living Arrangements House Household Members spouse,family Type of transporation used prior to Drives own vehicle admit Independent with ADL's Yes Is patient alert and oriented? Yes Barriers to Discharge No Discharge Plan Home Transportation Arrangement likely spouse Referrals Initiated None needed Additional Comment Pending surgery and progress Review Status In Process Please Provide Date Initial DC 09/18/22 Assessment Was Performed Next Review Type Continued Stay Review
--- NOTE | 2022-09-18 12:35 | PM.OP.1 ---
Operative Date/Time/Diagnoses Date of procedure: 09/18/22 Time of procedure: 12:36 Pre-op diagnosis: Bilateral inguinal hernia with left recurrent inguinal hernia Post-op diagnosis: same Procedure & Clinicians Procedure: Laparoscopic repair bilateral inguinal hernia with repair of recurrent left inguinal hernia Same procedure as scheduled: Yes
--- NOTE | 2022-09-18 12:57 | SUR.OPER ---
Supine on padded OR bed, head on pillow, right arm secured on padded arm board at <90 degrees abduction, left arm tucked padded with gel at elbow and hand, legs uncrossed, safety belt at thigh, tape over blanket over lower legs.
[2022-09-18] MEDS: BUPIVACAINE 0.5% W/ EPI (PF) 30 ML VIAL INJ (13:19)
--- NOTE | 2022-09-18 14:19 | PM.OP.1 ---
Operative Date/Time/Diagnoses Date of procedure: 09/18/22 Time of procedure: 14:19 Pre-op diagnosis: Acute appendicitis Post-op diagnosis: other (Acute perforated appendicitis) Procedure & Clinicians Procedure: Laparoscopic appendectomy Same procedure as scheduled: Yes Surgeon: Jay Garcia Anesthesia Type: General Operative Notes Procedure in detail: Procedure in detail: The patient was on IV antibiotics. The patient was brought to the operating room, placed on the table in the supine position and general endotracheal anesthesia was induced. A time-out was performed. The abdomen was prepped and draped in the usual fashion. After injection of local anesthetic a 1 cm infraumbilical incision was created with a 15 blade scalpel. The umbilical stalk was grasped with a Stew clamp to elevate the abdominal wall. The infraumbilical midline fascia was cleared over 1 cm and the fascia was scored with cautery. The peritoneum was pierced with a Peon clamp. The Venkat port was placed and the abdomen was insufflated to 15 mmHg. The camera was inserted and there was no evidence of any injury from the entry. Next, 5 mm ports were placed in the suprapubic and left lower quadrant positions under direct vision. The patient was placed in Trendelenburg with the right-side elevated. There was omentum adherent over the cecum which was bluntly dissected free. There was a pus pocket that was opened and drained with suction. The tissue was extremely edematous and inflamed. We started dissecting what appeared to be an inflamed appendix down to what appeared to be the appendiceal base coming off the cecum and it was divided from the cecum between PDS Endoloops but this tissue turned out to be just some inflamed mesenteric fat. Further mobilization of the terminal ileum medially demonstrated the actual appendix which appeared to be gangrenous and perforated near its midsection. We freed the appendix down to the base where it splayed out become the cecum and since the exact transition zone was not obvious we divided base with a stapler using a blue load. The specimen was placed in a Endo-Catch bag. Some purulent bloody fluid with suction from the base of the appendix and pelvis. We placed a 15 round Joseph drain into the right lower quadrant where the abscess and appendix had been. The table was flattened and the terminal ileum and omentum were allowed to slide in over the appendiceal stump. Finally, the 5 mm ports were removed under direct vision. The pneumoperitoneum was released and the Venkat port was removed followed by the Endo-Catch bag. Additional local was injected into the fascia and the infraumbilical incision was closed with 2 interrupted 2-0 Vicryl sutures. The skin incisions were closed with 4 Monocryl. Steri-Strips were applied followed by Band-Aids. EBL: 25 mL Specimen: Appendix Post-operative Condition: stable Disposition: PACU
[2022-09-18] MEDS: HYDROCODONE/ACET 5/325 TABLET 1.5 TAB PO (19:45)
[2022-09-18] MEDS: ATORVASTATIN 20 MG TABLET 40 MG PO (21:09)
[2022-09-18] MEDS: DULOXETINE 20 MG CAPSULE 40 MG PO (21:10)
[2022-09-19] MEDS: HYDROCODONE/ACET 5/325 TABLET 1.5 TAB PO ×5 (00:03→23:15)
[2022-09-19 03:42] VITALS: BP 108/68; PULSE 69; RESP 19; TEMP 36.3; O2SAT 94
[2022-09-19 06:58] LABS: Add Manual Diff / Slide Review NO; Basophils Absolute Auto 0 /uL (0-100); Basophils Percent Auto 0.1 % (0-2); Eosinophils Absolute Auto 0 /uL (0-450); Hematocrit 33.9 % (41-53); Hemoglobin 11.5 g/dL (13.5-17.5); Lymphocytes Absolute Auto 600 /uL (1100-4500); Lymphocytes Percent Auto 4.4 % (25-40); Mean Corpuscular HGB Conc 33.8 % (30-36); Mean Corpuscular Volume 88.7 fL (80-100); Monocytes Absolute Auto 500 /uL (0-900); Monocytes Percent Auto 4.2 % (3-14); Neutrophils Absolute Auto 11900 /uL (1500-7000); Neutrophils Percent Auto 91.3 % (50-75); Platelet Count 159 X10^3/uL (150-400); Red Blood Cell Count 3.82 X10^6/uL (4.5-5.9); Red Cell Distribution Width 13.5 % (11.6-14.8); White Blood Cell Count 13.1 X10^3/uL (4.5-11.0)
[2022-09-19 08:18] VITALS: BP 114/70; PULSE 72; RESP 16; TEMP 36.8; O2SAT 97
[2022-09-19] MEDS: MAGNESIUM OXIDE 400 MG TABLET PO (08:57)
[2022-09-19] MEDS: METOPROLOL IR 25 MG TABLET PO ×2 (08:57→21:50)
[2022-09-19] MEDS: DULOXETINE 20 MG CAPSULE 40 MG PO ×2 (08:57→21:50)
[2022-09-19] MEDS: SODIUM CHLORIDE 0.9% FLUSH 10 ML IV ×2 (09:04→21:51)
[2022-09-19] MEDS: PIPERACILLIN/TAZO 3.375 GM in SODIUM CHLORIDE 0.9% 100 ML IV ×2 (16:31→23:16)
--- NOTE | 2022-09-19 17:18 | PM.PN.1 ---
Subjective Subjective Date Patient Seen: 09/19/22 Time Patient Seen: 17:18 Interval history: Feels well today. White blood cell count olga little bit apparently the Zosyn order so he was not on Zosyn for part of yesterday. White blood cell count slightly elevated today. Exam Vital Signs (past 8 hours): Oxygen Delivery Method Nasal Cannula Oxygen Flow Rate 0 Narrative Exam Narrative: Abdomen soft There is some serosanguineous drainage in the drain Objective Labs 09/19/22 05:38 09/17/22 10:11 Labs: Laboratory Results - last 24 hr 09/19/22 05:38 WBC 13.1 H RBC 3.82 L Hgb 11.5 L Hct 33.9 L MCV 88.7 MCH 30.0 MCHC 33.8 RDW 13.5 Plt Count 159 Neut % (Auto) 91.3 H Lymph % (Auto) 4.4 L Swain % (Auto) 4.2 Eos % (Auto) 0.0 L Baso % (Auto) 0.1 Neut # (Auto) 72143 H Lymph # (Auto) 600 L Swain # (Auto) 500 Eos # (Auto) 0 Baso # (Auto) 0 PFSH Social History household members: spouse and family Smoking Status: Never smoker alcohol intake: never Assessment & Plan Assessment and plan (1) Acute appendicitis: Status: Acute Plan Recommend 1 more day of IV antibiotics Expect he will be able to have the drain DC and go home tomorrow. Time Spent With Patient Critical Care time: I spent a total of [] minutes of critical care time on this patient's care today; this time is exclusive of procedural time.
[2022-09-19 18:00] VITALS: BP 124/67; PULSE 82; RESP 18; TEMP 36.8; O2SAT 95
[2022-09-19 19:35] VITALS: BP 133/78; PULSE 86; RESP 18; TEMP 36.8; O2SAT 99
[2022-09-19] MEDS: ATORVASTATIN 20 MG TABLET 40 MG PO (21:51)
[2022-09-20 02:17] VITALS: BP 122/77; PULSE 70; RESP 18; TEMP 36.6; O2SAT 96
[2022-09-20 04:17] VITALS: BP 127/84; PULSE 70; RESP 18; TEMP 36.5; O2SAT 96
[2022-09-20] MEDS: PIPERACILLIN/TAZO 3.375 GM in SODIUM CHLORIDE 0.9% 100 ML IV (05:59)
[2022-09-20 08:00] VITALS: BP 127/77; PULSE 67; RESP 17; TEMP 36.1; O2SAT 98
[2022-09-20] MEDS: MAGNESIUM OXIDE 400 MG TABLET PO (08:07)
[2022-09-20] MEDS: HYDROCODONE/ACET 5/325 TABLET 1.5 TAB PO (08:08)
[2022-09-20] MEDS: DULOXETINE 20 MG CAPSULE 40 MG PO (08:08)
[2022-09-20] MEDS: METOPROLOL IR 25 MG TABLET PO (08:08)
[2022-09-20] MEDS: SODIUM CHLORIDE 0.9% FLUSH 10 ML IV (08:09)
[2022-09-20 08:21] LABS: Add Manual Diff / Slide Review NO; Basophils Absolute Auto 0 /uL (0-100); Basophils Percent Auto 0.3 % (0-2); Eosinophils Absolute Auto 0 /uL (0-450); Hematocrit 35.6 % (41-53); Hemoglobin 11.7 g/dL (13.5-17.5); Lymphocytes Absolute Auto 900 /uL (1100-4500); Lymphocytes Percent Auto 6.8 % (25-40); Mean Corpuscular HGB Conc 32.9 % (30-36); Mean Corpuscular Hemoglobin 29.4 PG (26-34); Mean Corpuscular Volume 89.4 fL (80-100); Monocytes Absolute Auto 700 /uL (0-900); Monocytes Percent Auto 5.1 % (3-14); Neutrophils Absolute Auto 11400 /uL (1500-7000); Neutrophils Percent Auto 87.8 % (50-75); Platelet Count 214 X10^3/uL (150-400); Red Blood Cell Count 3.98 X10^6/uL (4.5-5.9); Red Cell Distribution Width 13.8 % (11.6-14.8)
[2022-09-20 12:01] VITALS: BP 134/81; PULSE 70; RESP 17; TEMP 36.6; O2SAT 99
[2022-09-20] MEDS: AMOXICILLIN/CLAV 875/125 MG 1 TAB PO (13:22)
--- NOTE | 2022-09-20 14:49 | CM.DPNOTE ---
DC Note DC home today to the care of his spouse, patient eager to return home. Close outpatient f/u expected No DC needs identified JW
--- NOTE | 2022-09-26 07:20 | PM.DS.1 ---
History of Present Illness History of Present Illness Date Patient Seen: 09/20/22 Chief complaint: rt side abd pain, fever Narrative: acute appendicitis Discharge Providers Provider Date of admission: 09/17/22 11:33 Discharge Date: 09/20/22 Primary care physician: Saud AKINS Provider Discharge provider: Kadi Omalley MD Summary Hospital Course Discharge Diagnosis: acute appendicitis Hospital Course: OR for lap appy, appendix ruptured. Antibiotics IV and PO. Status at Discharge Cognitive/behavioral status at discharge: at baseline, oriented Functional status at discharge: independent ambulation Overall status at discharge: patient is progressing back to baseline Time Spent with Patient Time spent: Less than 30 minutes Exam Vital Signs (past 8 hours): Oxygen Delivery Method Nasal Cannula Oxygen Flow Rate 0 Narrative Exam Narrative: drain is serous, no complication. Drain removed prior to discharge Objective Labs 09/20/22 08:10 09/17/22 10:11 PFSH Social History household members: spouse and family Smoking Status: Never smoker alcohol intake: never Discharge Assessment & Plan Assessment and Plan Assessment: S/p lap appy Plan of Treatment: Home on Augmentin. Discharge Plan Discharge Plan Patient Disposition: Home Discharge orders & Medications Prescriptions: New hydrocodone-acetaminophen 5-325 mg Tablet 1.5 tab PO Q4HR PRN (Reason: Pain, Severe (7-10)) Qty: 20 0RF amoxicillin-pot clavulanate 875-125 mg Tablet 1 tab PO BID Qty: 10 0RF amoxicillin-pot clavulanate 875-125 mg tablet 1 tab PO BID Qty: 10 0RF hydrocodone-acetaminophen 5-325 mg tablet 1 tab PO Q6H PRN (Reason: pain) Qty: 20 0RF Continued Eliquis 5 MG tablet 5 mg PO BID Qty: 0 atorvastatin [Lipitor] 40 MG tablet 40 mg PO HS Qty: 90 dofetilide [Tikosyn] 500 mcg Capsule 500 mcg PO BID metoprolol tartrate 25 mg Tablet 25 mg PO BID duloxetine 20 mg Capsule,Delayed Release(Dr/Ec) 40 mg PO BID hydrocodone-acetaminophen [[place]] 7.5 MG/325 MG tablet 1 tab PO TID PRN (Reason: Pain (Scale Score 1-3)) magnesium 200 mg Tablet 400 mg PO DAILY [id number] 200 mcg/240 mg -360 mg Combo Pack 1 pkg PO QAM Follow up/Referrals: ProviderSaud [Primary Care Provider] - Diet/Activity/Treatments Diet: Diet as Tolerated Visit Report/Discharge Packet Instructions: DI for an Appendectomy, DI for Laparoscopy, DI for Prescription Opioid Use, [facility]: Wound Care Stand Alone Forms: Congestive Heart Failure, Patient Portal/API, Stroke Signs & Symptoms, Surgery Discharge Discharge Data Primary Care Provider: Saud Davis Attending Provider: Jay Garcia
== END 2022-09-20 13:44 | disposition home or self-care (01) ==
LOC: ED 11:33 → AC 11:34
PROVIDERS: Admitting Provider Surgery; Emergency Provider Emergency Medicine; Referring Provider Emergency Medicine; Visit Provider Surgery
PROC: 0DTJ4ZZ Resection of Appendix, Percutaneous Endoscopic Approach (ICD-10-PCS; CPT 44970; principal; 2022-09-18 12:15)
DX: K35.80 Unspecified acute appendicitis (principal); I48.91 Unspecified atrial fibrillation; Z20.822 Contact with and (suspected) exposure to COVID-19
CPT/HCPCS: 44970; 36415; 74177; 80053; 83690; 85025; 87635; 93005; 96365; 96366; 96367; 96368; 96375; 96376; 99221; 99284; C9803; G0378; J0696; J1100; J1170; J2250; J2270; J2405; J2543; J2704; J3010; Q9967

== ENCOUNTER 2022-12-04 13:57 | Emergency (ER) | payer OTHER, SELFPAY ==
[2022-09-17 12:41] VITALS: BMI 35.9
[2022-12-04] VITALS (10 sets, daily range): BP systolic 144–158; BP diastolic 83–92; PULSE 73–82; RESP 14–20; TEMP 36.6; O2SAT 95–100; BMI 39.4
--- NOTE | 2022-12-04 14:48 | ED.ABDPAIN ---
HPI - Abdominal Pain General Chief Complaint: Abdominal Pain Stated Complaint: R/side pain Time Seen by Provider: 12/04/22 13:59 Source: patient Mode of arrival: Ambulatory History of Present Illness HPI narrative: 56-year-old male nonsmoker with history of AFib on Eliquis presents with right-sided pain that started while he was at work earlier today. He states the pain is there persistently and is largely sharp and stabbing, he denies any radiation of this pain and states that it is certainly made worse by moving and by palpation. He denies any obvious provocation that is unprompted. He is had no fever or chills. Denies nausea, vomiting or diarrhea. He denies chest pain or shortness of breath. He denies any dysuria, frequency or urgency. He had an appendectomy a few months ago but denies other surgery. Related Data Home Medications Medication Instructions Recorded Confirmed apixaban 5 mg tablet (Eliquis) 5 mg PO BID ##0 05/03/17 10/09/22 atorvastatin 40 mg tablet (Lipitor) 40 mg PO HS ##90 06/13/17 10/09/22 dofetilide 500 mcg capsule 500 mcg PO BID 01/07/18 10/09/22 (Tikosyn) duloxetine 20 mg capsule,delayed 40 mg PO BID 01/07/18 10/09/22 release hydrocodone 7.5 mg-acetaminophen 1 tab PO TID PRN Pain (Scale Score 01/07/18 10/09/22 325 mg tablet ([place]) 1-3) metoprolol tartrate 25 mg tablet 25 mg PO BID 01/07/18 10/09/22 magnesium 200 mg tablet 400 mg PO DAILY 09/17/22 10/09/22 [id number] 200 1 pkg PO QAM 09/17/22 10/09/22 mcg/240 mg-360 mg oral combo pack Previous Rx's Medication Instructions Recorded amoxicillin 875 mg-potassium 1 tab PO BID #10 tabs 09/20/22 clavulanate 125 mg tablet amoxicillin 875 mg-potassium 1 tab PO BID #10 tabs 09/20/22 clavulanate 125 mg tablet hydrocodone 5 mg-acetaminophen 325 1 tab PO Q6H PRN pain #20 tabs 09/20/22 mg tablet hydrocodone 5 mg-acetaminophen 325 1.5 tab PO Q4HR PRN Pain, Severe 09/20/22 mg tablet (7-10) #20 tabs cyclobenzaprine 10 mg tablet 10 mg PO TID PRN muscle spasm #14 12/04/22 tabs hydrocodone 5 mg-acetaminophen 325 1 tab PO Q4-6H PRN pain #10 tabs 12/04/22 mg tablet ondansetron 4 mg disintegrating 4 mg PO TID-QID PRN nausea and 12/04/22 tablet vomiting #10 tabs Allergies Allergy/AdvReac Type Severity Reaction Status Date / Time No Known Drug Allergies Allergy Verified 10/09/22 13:53 Review of Systems Review of Systems Narrative: GENERAL: Denies chills, fatigue, malaise, fever, sweats. HEENT: Denies sinus pain, ear pain, sore throat, difficulty swallowing, dizziness. RESPIRATORY: Denies dyspnea, cough, wheezing, hemoptysis, sputum. CARDIOVASCULAR: Denies chest pain, palpitations, orthopnea, edema, GASTROINTESTINAL: See HPI : Denies dysuria, frequency, incontinence, hematuria, urinary retention. MUSCULOSKELETAL: denies weakness, joint pain, or bony pain SKIN: Denies rash, skin lesions, or other NEUROLOGIC: Denies weakness, headache, numbness, change in speech, confusion, seizures, incoordination. PSYCHIATRIC: No concerning psychosocial issues. 12 point review of systems is negative except for those stated above Patient History Social History household members: spouse and family Smoking Status: Never smoker alcohol intake: never Smoking Status: Never smoker alcohol intake frequency: holidays/special occasions only Substance Use Type: does not use Exam Narrative Exam Narrative: GENERAL: [56] year old patient appears stated age. Well-developed patient, in mild distress. HEAD: Atraumatic. Normocephalic. EYES: Pupils equal round and reactive. Extraocular motions intact. No scleral icterus. No injection or drainage. ENT: Nose without bleeding, purulent drainage. Throat without erythema, tonsillar hypertrophy or exudate. Airway patent. NECK: Trachea midline. Non tender CARDIOVASCULAR: Regular rate and rhythm without murmurs, gallops, or rubs. RESPIRATORY: Clear to auscultation. Breath sounds equal bilaterally. No wheezes, rales, or rhonchi. GASTROINTESTINAL: Abdomen soft, tender in the right upper quadrant and right flank, no swelling, redness, warmth or rash, nondistended. EXTREMITIES: No edema or joint tenderness. BACK: Nontender without deformity or crepitance. No flank tenderness. NEURO: AOx3. SKIN: No rash or erythema of visible areas Initial Vital Signs Initial Vital Signs: Vital Signs Temperature 97.9 F 12/04/22 14:00 Pulse Rate 82 12/04/22 14:00 Respiratory Rate 19 12/04/22 14:00 Blood Pressure 158/87 H 12/04/22 14:00 Pulse Oximetry 100 12/04/22 14:00 Oxygen Delivery Method Room Air 12/04/22 14:00 Course Orders Ordered: Discontinued Medications Hydromorphone HCl (Hydromorphone 0.5 Mg Inj) 0.5 mg IV NOW ONE Stop: 12/04/22 15:11 Last Admin: 12/04/22 15:30 Dose: 0.5 mg Documented By: NR Hydromorphone HCl (Hydromorphone 0.5 Mg Inj) 0.5 mg IV NOW ONE Stop: 12/04/22 17:22 Last Admin: 12/04/22 17:27 Dose: 0.5 mg Documented By: NR Sodium Chloride (Normal Saline 0.9%) 1,000 mls @ 1,000 mls/hr IV BOLUS ONE Stop: 12/04/22 16:09 Last Infusion: 12/04/22 16:39 Dose: 0 mls/hr Documented By: Admin: 12/04/22 15:30 Dose: 1,000 mls/hr Documented By: NR Ondansetron HCl (Ondansetron 4 Mg/2 Ml Inj) 4 mg IV NOW ONE Stop: 12/04/22 15:11 Last Admin: 12/04/22 17:57 Dose: Not Given Documented By: NR Reevaluation(s) Reevaluation #1: Patient does have some improvement in symptoms after Dilaudid Vital Signs Vital signs: Vital Signs - 8 hr 12/04/22 14:00 12/04/22 14:05 12/04/22 14:05 Temperature 97.9 F Pulse Rate 82 81 Respiratory Rate 19 Blood Pressure 158/87 H 158/87 H Pulse Oximetry 100 99 Oxygen Delivery Method Room Air 12/04/22 14:30 12/04/22 15:00 12/04/22 15:30 Temperature Pulse Rate 79 76 Respiratory Rate 16 17 Blood Pressure 146/92 H Pulse Oximetry 98 98 Oxygen Delivery Method 12/04/22 15:30 12/04/22 15:31 12/04/22 15:31 Temperature Pulse Rate 74 75 Respiratory Rate 20 18 Blood Pressure 144/84 H Pulse Oximetry 97 97 Oxygen Delivery Method 12/04/22 16:00 12/04/22 16:00 12/04/22 16:30 Temperature Pulse Rate 73 Respiratory Rate 17 Blood Pressure 144/88 H 145/83 H Pulse Oximetry 97 Oxygen Delivery Method 12/04/22 16:30 Temperature Pulse Rate 75 Respiratory Rate 14 Blood Pressure Pulse Oximetry 95 Oxygen Delivery Method MDM - Abdominal Pain Lab Data 12/04/22 15:30 12/04/22 15:30 Labs: Lab Results 12/04/22 12/04/22 12/04/22 Range/Units 15:30 15:30 15:30 WBC 6.7 (4.5-11.0) X10^3/uL RBC 4.60 (4.5-5.9) X10^6/uL Hgb 13.9 (13.5-17.5) g/dL Hct 40.8 L (41-53) % MCV 88.7 (80-100) fL MCH 30.1 (26-34) PG MCHC 34.0 (30-36) % RDW 13.9 (11.6-14.8) % Plt Count 216 (150-400) X10^3/uL Neut % (Auto) 54.9 (50-75) % Lymph % (Auto) 34.2 (25-40) % [place] % (Auto) 8.5 (3-14) % Eos % (Auto) 1.3 L (2-4) % Baso % (Auto) 1.1 (0-2) % Neut # (Auto) 3700 (7509-7648) /uL Lymph # (Auto) 2300 (8481-9152) /uL [place] # (Auto) 600 (0-900) /uL Eos # (Auto) 100 (0-450) /uL Baso # (Auto) 100 (0-100) /uL Sodium 139 (137-145) mmol/L Potassium 4.3 (3.4-5.1) mmol/L Chloride 105 (98-107) mmol/L Carbon Dioxide 28 (22-32) mmol/L BUN 23 H (9-20) mg/dL Creatinine 0.80 (0.66-1.25) mg/dL Estimated GFR > 60 (>60) mL/min BUN/Creatinine Ratio 28.8 H (6-22) Glucose 81 (70-100) mg/dL Lactate 1.1 (0.7-2.1) mmol/L Calcium 9.3 (8.4-10.2) mg/dL Total Bilirubin 0.5 (0.2-1.3) mg/dL AST 37 (17-59) IU/L ALT 32 (<50) IU/L Alkaline Phosphatase 74 (38-126) U/L Total Protein 7.7 (6.3-8.2) g/dL Albumin 4.3 (3.5-5.0) g/dL Globulin 3.4 (1.7-4.1) g/dL Albumin/Globulin Ratio 1.3 (1.0-2.8) Lipase 313 H (23-300) U/L Point of care testing: Urine Dip Bedside Urine Glucose Negative Bedside Urine Bilirubin - Negative Bedside Urine Ketone - Negative Urine Specific [place] 1.015 Bedside Urine Occult Blood - Negative Bedside Urine pH 6.0 Bedside Urine Protein - Negative Bedside Urine Urobilinogen - Negative Bedside Urine Nitrite - Negative Bedside Urine Leukocytes - Negative Esterase MDM Narrative Medical decision making narrative: CC: 56-year-old with right flank pain Complicating co-morbidities: Age, anticoagulation, hyperlipidemia, AFib, relatively recent appendectomy, history of kidney stones Data collected from: Patient Medical records reviewed: Prior notes reviewed in our EMR Differential considered, but not limited to: Gallbladder disease, kidney stone, musculoskeletal, intra-abdominal hemorrhage, inflammation, infectious process versus other Exam documented above, pertinent findings include: Heart rate regular, lungs clear, abdomen soft, tender in the right upper quadrant and right flank Lab Test results independently reviewed as above. Pertinent findings: No leukocytosis or left shift, no signs of anemia, electrolytes and renal function within normal, lipase very slightly elevated though improved over prior visit. No evidence of infection or blood in the urine Independently reviewed EKG as above Imaging studies independently reviewed: Abdominal ultrasound without significant findings, gallbladder without abnormal findings. CT demonstrates no significant abnormal finding Treatments: Saline, Zofran, Dilaudid Re-evaluations: Improved after above-stated therapies Discussion: Patient with right flank pain worse with palpation and motion and very reassuring labs including urine without signs of infection or blood. No abnormal findings in the CBC or chemistries. Ultrasound demonstrates no abnormal gallbladder finding, CT of abdomen and pelvis without significant finding. Patient is hemodynamically stable, pain is well controlled. Other considerations include musculoskeletal, patient given prescriptions for pain control, return precautions including worsening pain, fever, chills, nausea, vomiting among others Disposition: see below, along with detailed discharge instructions that have been reviewed with patient as well as indications for ED re-evaluation and additional outpatient follow up Discharge Plan Departure Patient Disposition: Home Clinical Impression: Acute flank pain Instructions: DI for Flank Pain Activity Restrictions/Additional Instructions: *You have been diagnosed with [right flank pain] * As we discussed your history and physical exam as well as labs and imaging are very reassuring. There is no evidence of any severe diagnoses that would require a specific or immediate intervention. *What to do: *Please continue to take your regular medications as directed. [x ] New medication prescriptions sent to your pharmacy: [ ] *Please follow up with your primary care provider in 2-3 days, call for an appointment. Let them know you were seen in the Emergency Department and that we ask that you be seen in follow up. We will electronically transmit a record of today's note if your PCP is in our system *Please consider a clear liquid diet for the next 24-48 hours and then slowly advance to regular as tolerated. Also, try to avoid alcohol, nicotine, caffeine, spicy, acidic or fatty foods as this may worsen your symptoms *If you do not have a primary care provider please contact the [facility] Resource line at [phone]. They will ask some questions about your medical history and help get you set up with a doctor in the community. *Return to Emergency Department if you should have any new, worsening or concerning symptoms, such as [fever greater than 101 F, shaking chills, worsening pain, persistent vomiting or other bothersome symptoms] Prescriptions: New cyclobenzaprine 10 mg tablet 10 mg PO TID PRN (Reason: muscle spasm) Qty: 14 0RF hydrocodone-acetaminophen 5-325 mg tablet 1 tab PO Q4-6H PRN (Reason: pain) Qty: 10 0RF ondansetron 4 mg tablet,disintegrating 4 mg PO TID-QID PRN (Reason: nausea and vomiting) Qty: 10 0RF No Action Eliquis 5 MG tablet 5 mg PO BID Qty: 0 atorvastatin [Lipitor] 40 MG tablet 40 mg PO HS Qty: 90 dofetilide [Tikosyn] 500 mcg Capsule 500 mcg PO BID metoprolol tartrate 25 mg Tablet 25 mg PO BID duloxetine 20 mg Capsule,Delayed Release(Dr/Ec) 40 mg PO BID hydrocodone-acetaminophen [[place]] 7.5 MG/325 MG tablet 1 tab PO TID PRN (Reason: Pain (Scale Score 1-3)) magnesium 200 mg Tablet 400 mg PO DAILY [id number] 200 mcg/240 mg -360 mg Combo Pack 1 pkg PO QAM hydrocodone-acetaminophen 5-325 mg Tablet 1.5 tab PO Q4HR PRN (Reason: Pain, Severe (7-10)) Qty: 20 0RF amoxicillin-pot clavulanate 875-125 mg Tablet 1 tab PO BID Qty: 10 0RF amoxicillin-pot clavulanate 875-125 mg tablet 1 tab PO BID Qty: 10 0RF hydrocodone-acetaminophen 5-325 mg tablet 1 tab PO Q6H PRN (Reason: pain) Qty: 20 0RF Referrals: ProviderSaud [Primary Care Provider] - Stand Alone Forms: Patient Portal/API
[2022-12-04] MEDS: SODIUM CHLORIDE 0.9% 1,000 ML 1000 ML IV (15:30)
[2022-12-04] MEDS: HYDROMORPHONE 0.5 MG INJ IV ×2 (15:30→17:27)
[2022-12-04 15:33] LABS: Add Manual Diff / Slide Review NO; Basophils Absolute Auto 100 /uL (0-100); Basophils Percent Auto 1.1 % (0-2); Eosinophils Absolute Auto 100 /uL (0-450); Eosinophils Percent Auto 1.3 % (2-4); Hematocrit 40.8 % (41-53); Hemoglobin 13.9 g/dL (13.5-17.5); Lymphocytes Absolute Auto 2300 /uL (1100-4500); Lymphocytes Percent Auto 34.2 % (25-40); Mean Corpuscular Hemoglobin 30.1 PG (26-34); Mean Corpuscular Volume 88.7 fL (80-100); Monocytes Absolute Auto 600 /uL (0-900); Monocytes Percent Auto 8.5 % (3-14); Neutrophils Absolute Auto 3700 /uL (1500-7000); Neutrophils Percent Auto 54.9 % (50-75); Platelet Count 216 X10^3/uL (150-400); Red Cell Distribution Width 13.9 % (11.6-14.8); White Blood Cell Count 6.7 X10^3/uL (4.5-11.0)
[2022-12-04 15:51] LABS: Lactate (Lactic Acid) 1.1 mmol/L (0.7-2.1)
[2022-12-04 15:52] LABS: Alanine Aminotransferase 32 IU/L (<50); Albumin 4.3 g/dL (3.5-5.0); Albumin Globulin Ratio 1.3 (1.0-2.8); Alkaline Phosphatase 74 U/L (38-126); Aspartate Aminotransferase 37 IU/L (17-59); BUN Creatinine Ratio 28.8 (6-22); Bilirubin Total 0.5 mg/dL (0.2-1.3); Blood Urea Nitrogen 23 mg/dL (9-20); Calcium 9.3 mg/dL (8.4-10.2); Carbon Dioxide 28 mmol/L (22-32); Chloride 105 mmol/L (98-107); Estimated Glomerular Filt Rate > 60 mL/min (>60); Globulin 3.4 g/dL (1.7-4.1); Glucose 81 mg/dL (70-100); HEMOLYSIS < 15 (0-50); Lipase 313 U/L (23-300); Potassium 4.3 mmol/L (3.4-5.1); Sodium 139 mmol/L (137-145); Total Protein 7.7 g/dL (6.3-8.2)
--- NOTE | 2022-12-04 15:53 | DI.US.S_ITS ---
PROCEDURE: US ABDOMEN LIMITED INDICATIONS: RUQ PAIN TECHNIQUE: Real-time focused scanning was performed of the abdomen, with image documentation. COMPARISON: [facility], CT, CT ABDOMEN PELVIS W CON, 09/17/2022, 10:49. FINDINGS: Within the left hepatic lobe, there is a septated focus of echogenicity measuring 19 x 13 x 13 mm. Additional poorly visualized foci of decreased echogenicity are noted within the liver corresponding to multiple cysts identified on CT. No stones are identified within the gallbladder. Wall thickness is normal measuring 2.2 mm. Common bile duct measures approximately 6.7 mm. IMPRESSION: Multiple hepatic cysts as previously identified. Gallbladder is unremarkable. Dictated by: Emy Arredondo M.D. on 12/04/2022 at 16:13 Approved by: Emy Arredondo M.D. on 12/04/2022 at 16:13
--- NOTE | 2022-12-04 16:30 | DI.CT.S_ITS ---
PROCEDURE: CT ABDOMEN PELVIS W CON INDICATIONS: R flank pain TECHNIQUE: After the administration of oral and IV contrast, axial sections were acquired from the lung bases to the pubic symphysis. Coronal and sagittal reformats were performed. For radiation dose reduction, the following was used: automated exposure control, adjustment of mA and/or kV according to patient size. COMPARISON: [facility], US, US ABDOMEN LIMITED, 12/04/2022, 15:36. [facility], CT, CT ABDOMEN PELVIS W CON, 09/17/2022, 10:49. FINDINGS: Image quality: Excellent. Lung bases: Unremarkable. Heart: No significant findings. ABDOMEN: Liver: Normal size. Mild hepatic steatosis. There are multiple low-density nodules, most likely cysts. Some nodules are too small to further characterize, therefore, consider indeterminate. Gallbladder: Unremarkable. Biliary ducts: Unremarkable. Pancreas: Unremarkable. Spleen: Unremarkable. Adrenal Glands: Unremarkable. Kidneys and Ureters: Normal size and symmetric enhancement. There is a 1.2 cm low-density nodule in the superior pole of the left kidney, most likely cyst. Stomach and Bowel: Stomach, small bowel loops, and colon are unremarkable. Appendix is not visualized. There is a surgical clip in the cecum, presumably for appendectomy. Recommend clinical correlation. Peritoneum: No abnormal intraperitoneal fluid. No free air. Ventral Wall: No hernia. Abdominal Nodes: No retroperitoneal or mesenteric adenopathy by size criteria. Vessels: Aorta and inferior vena cava are normal in size. PELVIS: Pelvic Organs: Unremarkable. Bladder: Unremarkable. Pelvic Nodes: No enlarged lymph nodes. Miscellaneous: No inguinal hernias are seen. Bones: Prominent bridging anterior osteophyte in lumbar spine. There is partial ankylosis of sacroiliac joints bilaterally. IMPRESSION: 1. No acute abnormalities in abdomen or pelvis. 2. No renal stones or hydronephrosis. 3. Multiple hepatic cysts. 4. Bridging osteophytes in thoracic spine and ankylosis of sacroiliac joints. Recommend clinical correlation for ankylosing spondylitis. Dictated by: Alta Barker M.D. on 12/04/2022 at 17:03 Approved by: Alta Barker M.D. on 12/04/2022 at 17:09
== END 2022-12-04 18:32 | disposition home or self-care (01) ==
PROVIDERS: Emergency Provider Emergency Medicine
DX: R10.9 Unspecified abdominal pain (principal); Z79.01 Long term (current) use of anticoagulants; E78.5 Hyperlipidemia, unspecified
CPT/HCPCS: 36415; 74177; 76705; 80053; 81003; 83605; 83690; 85025; 96361; 96374; 96376; 99284; J1170; Q9967

== ENCOUNTER → 2023-02-24 11:25 | Outpatient (CLI) | payer OTHER, SELFPAY ==
[2022-09-17 12:41] VITALS: BMI 35.9
[2023-02-24 12:34] LABS: BUN Creatinine Ratio 22.9 (6-22); Blood Urea Nitrogen 19 mg/dL (9-20); Calcium 9.5 mg/dL (8.4-10.2); Carbon Dioxide 28 mmol/L (22-32); Chloride 106 mmol/L (98-107); Estimated Glomerular Filt Rate > 60 mL/min (>60); Glucose 104 mg/dL (70-100); HEMOLYSIS < 15 (0-50); Potassium 4.8 mmol/L (3.4-5.1); Sodium 139 mmol/L (137-145)
== END ==
PROVIDERS: Referring Provider Nurse Practitioner Family; Visit Provider Nurse Practitioner Family
DX: I48.91 Unspecified atrial fibrillation (principal); Z51.81 Encounter for therapeutic drug level monitoring; Z79.899 Other long term (current) drug therapy
CPT/HCPCS: 36415; 80048

== ENCOUNTER → 2023-03-14 12:41 | Outpatient (CLI) | payer OTHER, SELFPAY ==
[2022-09-17 12:41] VITALS: BMI 35.9
--- NOTE | 2023-03-14 | DI.MRI.S_ITS ---
PROCEDURE: MR ELBOW LT W CON INDICATIONS: Unspecified disorder of synovium and tendon, left upper arm TECHNIQUE: Noncontrast coronal proton density fast spin echo and T2 fast spin echo with fat saturation, axial and sagittal T1 spin echo and T2 fast spin echo with fat saturation through the elbow. COMPARISON: [facility], MR, MR ELBOW RT WO CON, 04/01/2018, 19:50. FINDINGS: Image quality: Excellent. Lateral structures: The lateral ulnar collateral ligament and radial collateral ligament both appear intact. The overlying common extensor tendon also appears normal. Medial structures: The ulnar collateral ligament appears intact. The overlying common flexor tendon appears normal. The ulnar nerve appears normal in size and signal within the cubital tunnel. Anterior structures: Tendinosis and low-grade intrasubstance partial-thickness tear involving distal biceps tendon at its insertion on proximal radius is seen. The brachialis tendon is intact. No bicipitoradial bursal fluid. The median and radial neurovascular bundles appear normal; no focal muscle atrophy to suggest nerve impingement. Posterior structures: Tendinosis and low-grade intrasubstance partial-thickness tear involving distal triceps tendon at its proximal olecranon insertion is seen. No abnormal fluid distension of olecranon bursa. Mild soft tissue edema in dorsal elbow soft tissue over the olecranon is seen. Bone and cartilage: Mild marrow edema is also seen involving proximal olecranon near distal triceps tendon insertion. No osteochondral injuries. IMPRESSION: 1. Low-grade partial-thickness tear involving distal triceps tendon at its proximal olecranon insertion with overlying soft tissue edema. Mild bony contusion also seen involving proximal olecranon on in this area. 2. Distal biceps tendinosis and low-grade intrasubstance partial-thickness tear at its insertion on proximal radius. 3. No fracture or dislocation. No gross osteochondral injuries. No other tendon or ligament pathology. Dictated by: Daniel Monterroso M.D. on 03/14/2023 at 16:17 Approved by: Daniel Monterroso M.D. on 03/14/2023 at 16:26
== END ==
PROVIDERS: Referring Provider Family Medicine; Visit Provider Family Medicine
DX: S46.312A Strain of muscle, fascia and tendon of triceps, left arm, initial encounter (principal); S46.212A Strain of muscle, fascia and tendon of other parts of biceps, left arm, initial encounter; M67.922 Unspecified disorder of synovium and tendon, left upper arm
CPT/HCPCS: 73221

== ENCOUNTER → 2023-06-25 12:00 | Outpatient (CLI) | payer OTHER, SELFPAY ==
[2022-09-17 12:41] VITALS: BMI 35.9
[2023-06-25 13:38] LABS: BUN Creatinine Ratio 17.7 (6-22); Blood Urea Nitrogen 14 mg/dL (9-20); Calcium 9.9 mg/dL (8.4-10.2); Carbon Dioxide 26 mmol/L (22-32); Chloride 106 mmol/L (98-107); Estimated Glomerular Filt Rate > 60 mL/min (>60); Glucose 97 mg/dL (70-100); HEMOLYSIS < 15 (0-50); Potassium 4.8 mmol/L (3.4-5.1); Sodium 140 mmol/L (137-145)
== END ==
PROVIDERS: Referring Provider Internal Medicine Cardiovascular Disease; Visit Provider Internal Medicine Cardiovascular Disease
DX: Z51.81 Encounter for therapeutic drug level monitoring (principal)
CPT/HCPCS: 36415; 80048

== ENCOUNTER → 2024-01-08 15:05 | Outpatient (CLI) | payer OTHER, SELFPAY ==
[2022-09-17 12:41] VITALS: BMI 35.9
[2024-01-08 16:37] LABS: Blood Urea Nitrogen 14 mg/dL (9-20); Calcium 9.4 mg/dL (8.4-10.2); Carbon Dioxide 33 mmol/L (22-32); Chloride 104 mmol/L (98-107); Estimated Glomerular Filt Rate > 60 mL/min (>60); Glucose 60 mg/dL (70-100); HEMOLYSIS < 15 (0-50); Magnesium 2.1 mg/dL (1.6-2.3); Potassium 4.5 mmol/L (3.4-5.1); Sodium 141 mmol/L (137-145)
== END ==
LOC: LAB 15:06
PROVIDERS: Referring Provider Nurse Practitioner; Visit Provider Nurse Practitioner
DX: I48.0 Paroxysmal atrial fibrillation (principal); Z51.81 Encounter for therapeutic drug level monitoring; Z79.899 Other long term (current) drug therapy
CPT/HCPCS: 36415; 80048; 83735

== ENCOUNTER → 2024-04-09 13:09 | Outpatient (CLI) | payer OTHER, SELFPAY ==
[2022-09-17 12:41] VITALS: BMI 35.9
[2024-04-09 15:35] LABS: Blood Urea Nitrogen 18 mg/dL (9-20); Calcium 9.4 mg/dL (8.4-10.2); Carbon Dioxide 30 mmol/L (22-32); Chloride 102 mmol/L (98-107); Estimated Glomerular Filt Rate > 60 mL/min (>60); Glucose 57 mg/dL (70-100); HEMOLYSIS < 15 (0-50); Potassium 4.7 mmol/L (3.4-5.1); Sodium 138 mmol/L (137-145)
== END ==
PROVIDERS: Referring Provider Internal Medicine Cardiovascular Disease; Visit Provider Internal Medicine Cardiovascular Disease
DX: Z51.81 Encounter for therapeutic drug level monitoring (principal); Z79.899 Other long term (current) drug therapy
CPT/HCPCS: 36415; 80048

== ENCOUNTER → 2024-07-01 13:30 | Outpatient (CLI) | payer OTHER, SELFPAY ==
[2022-09-17 12:41] VITALS: BMI 35.9
[2024-07-01 15:40] LABS: BUN Creatinine Ratio 16.3 (6-22); Blood Urea Nitrogen 16 mg/dL (9-20); Calcium 9.7 mg/dL (8.4-10.2); Carbon Dioxide 31 mmol/L (22-32); Chloride 103 mmol/L (98-107); Estimated Glomerular Filt Rate > 60 mL/min (>60); Glucose 72 mg/dL (70-100); HEMOLYSIS < 15 (0-50); Magnesium 1.9 mg/dL (1.6-2.3); Sodium 139 mmol/L (137-145)
== END ==
LOC: LAB 13:31
PROVIDERS: PCP Nurse Practitioner; Referring Provider Nurse Practitioner; Visit Provider Nurse Practitioner
DX: I48.0 Paroxysmal atrial fibrillation (principal); Z51.81 Encounter for therapeutic drug level monitoring; Z79.899 Other long term (current) drug therapy
CPT/HCPCS: 36415; 80048; 83735

== ENCOUNTER → 2024-10-05 13:39 | Outpatient (CLI) | payer OTHER, SELFPAY ==
[2022-09-17 12:41] VITALS: BMI 35.9
[2024-10-05 14:11] LABS: Blood Urea Nitrogen 16 mg/dL (9-20); Calcium 9.3 mg/dL (8.4-10.2); Carbon Dioxide 28 mmol/L (22-32); Chloride 103 mmol/L (98-107); Estimated Glomerular Filt Rate > 60 mL/min (>60); Glucose 103 mg/dL (70-100); HEMOLYSIS 19 (0-50); Potassium 4.1 mmol/L (3.4-5.1); Sodium 141 mmol/L (137-145)
== END ==
PROVIDERS: PCP Nurse Practitioner; Referring Provider Nurse Practitioner; Visit Provider Nurse Practitioner
DX: Z51.81 Encounter for therapeutic drug level monitoring (principal); Z79.899 Other long term (current) drug therapy
CPT/HCPCS: 36415; 80048

== ENCOUNTER → 2024-12-29 13:30 | Outpatient (CLI) | payer OTHER, SELFPAY ==
[2022-09-17 12:41] VITALS: BMI 35.9
[2024-12-29 15:33] LABS: BUN Creatinine Ratio 16.2 (6-22); Blood Urea Nitrogen 16 mg/dL (9-20); Calcium 9.7 mg/dL (8.4-10.2); Carbon Dioxide 30 mmol/L (22-32); Chloride 103 mmol/L (98-107); Estimated Glomerular Filt Rate > 60 mL/min (>60); Glucose 62 mg/dL (70-99); HEMOLYSIS < 15 (0-50); Magnesium 1.9 mg/dL (1.6-2.3); Potassium 4.9 mmol/L (3.4-5.1); Sodium 140 mmol/L (137-145)
== END ==
PROVIDERS: PCP Nurse Practitioner; Referring Provider Nurse Practitioner; Visit Provider Nurse Practitioner
DX: I48.0 Paroxysmal atrial fibrillation (principal); Z51.81 Encounter for therapeutic drug level monitoring; Z79.899 Other long term (current) drug therapy
CPT/HCPCS: 36415; 80048; 83735

== ENCOUNTER → 2025-06-28 11:44 | Outpatient (CLI) | payer OTHER, SELFPAY ==
[2022-09-17 12:41] VITALS: BMI 35.9
[2025-06-28 13:08] LABS: Blood Urea Nitrogen 19 mg/dL (9-20); Calcium 9.5 mg/dL (8.4-10.2); Carbon Dioxide 28 mmol/L (22-32); Chloride 105 mmol/L (98-107); Estimated Glomerular Filt Rate > 60 mL/min (>60); Glucose 95 mg/dL (70-99); HEMOLYSIS < 15 (0-50); Magnesium 1.9 mg/dL (1.6-2.3); Potassium 4.7 mmol/L (3.4-5.1); Sodium 141 mmol/L (137-145)
== END ==
PROVIDERS: PCP Nurse Practitioner; Referring Provider Nurse Practitioner; Visit Provider Nurse Practitioner
DX: I48.0 Paroxysmal atrial fibrillation (principal); Z51.81 Encounter for therapeutic drug level monitoring; Z79.899 Other long term (current) drug therapy
CPT/HCPCS: 36415; 80048; 83735